=== PATIENT | female | born 2000 | race African-American/Black ===

== ENCOUNTER 2021-11-05 15:41 | Emergency (ER) | payer MEDICAID ==
[~2021-11-05] VITALS: Ht 162.6 cm; Wt 51.0 kg
[2021-11-05] MEDS ORDERED: ACETAMINOPHEN 325MG TABLET PO ONE (16:15)
[2021-11-05] MEDS ORDERED: LIDOCAINE 5% PATCH TOP SCH (16:15)
[2021-11-05] MEDS ORDERED: TETANUS, DIPHTHERIA, PERTUSSIS VAC/PF 0.5ML (>10YR OLD) IM ONE (17:15)
[2021-11-05] MEDS ORDERED: AMOX-424 MT (17:44)
[2021-11-05] MEDS ORDERED: HYDR-4001 MT (17:44)
[2021-11-05] MEDS ORDERED: AMOXICILLIN/POTASSIUM CLAVULANATE 875/125MG TAB PO ONE (17:45)
[2021-11-05 18:28] VITALS: BP 118/67
== END 2021-11-05 18:22 | disposition home or self-care (01) ==
LOC: ER 15:41
DX: S02.40FA Zygomatic fracture, left side, initial encounter for closed fracture (principal); S01.81XA Laceration without foreign body of other part of head, initial encounter; S20.211A Contusion of right front wall of thorax, initial encounter; F12.10 Cannabis abuse, uncomplicated; Y04.0XXA Assault by unarmed brawl or fight, initial encounter; Y07.03 Male partner, perpetrator of maltreatment and neglect; Y93.89 Activity, other specified; Y92.018 Other place in single-family (private) house as the place of occurrence of the external cause
CPT/HCPCS: 12011; 70486; 71101; 90471; 90715; 99284

== ENCOUNTER 2023-08-23 13:25 | Emergency (ER) | payer MEDICAID, OTHER ==
[~2023-08-23] VITALS: Ht 165.1 cm; Wt 54.0 kg
[~2023-08-23 13:25] MED LIST: AMOX-424 MT; HYDR-4001 MT
[2023-08-23 13:27] VITALS: TEMP 98.4; O2SAT 98
[2023-08-23 13:45] VITALS: BP 118/72; PULSE 113; RESP 18
[2023-08-23] MEDS ORDERED: IBUPROFEN 600MG TABLET PO ONE (13:45)
[2023-08-23] MEDS ORDERED: AMOXICILLIN/POTASSIUM CLAVULANATE 875/125MG TAB PO ONE (13:45)
[2023-08-23] MEDS ORDERED: TETANUS, DIPHTHERIA, PERTUSSIS VAC/PF 0.5ML (>10YR OLD) IM ONE (13:45)
[2023-08-23] MEDS ORDERED: AMOX1TAB16 MT (15:56)
== END 2023-08-23 18:51 | disposition home or self-care (01) ==
LOC: ER 13:25
DX: S63.502A Unspecified sprain of left wrist, initial encounter (principal); Y04.0XXA Assault by unarmed brawl or fight, initial encounter; Y93.89 Activity, other specified; Y92.89 Other specified places as the place of occurrence of the external cause; Y99.8 Other external cause status
CPT/HCPCS: 81025; 73110; 90715; 90471; 99283; Z7610

== ENCOUNTER 2025-02-23 23:17 | Emergency (ER) | payer OTHER ==
[~2025-02-23] VITALS: Ht 165.1 cm; Wt 79.0 kg
[~2025-02-23 23:17] MED LIST changes: +AMOX1TAB16 MT
[2025-02-23 23:35] VITALS: O2SAT 99
[2025-02-24] MEDS: TETANUS, DIPHTHERIA, PERTUSSIS VAC/PF 0.5ML (>10YR OLD) IM ONE (00:56)
[2025-02-24] MEDS: BACITRACIN ZINC OINT UDPKT TOP ONE (00:56)
[2025-02-24] MEDS ORDERED: TOPUD MT (01:21)
[2025-02-24] MEDS ORDERED: AMOX1TAB16 MT (01:21)
[2025-02-24 01:40] VITALS: BP 112/65; PULSE 89; RESP 18; TEMP 37; O2SAT 99
== END 2025-02-24 01:45 | disposition home or self-care (01) ==
LOC: ER 23:17
DX: S71.132A Puncture wound without foreign body, left thigh, initial encounter (principal); F12.90 Cannabis use, unspecified, uncomplicated; Z79.899 Other long term (current) drug therapy; W54.0XXA Bitten by dog, initial encounter; Y93.89 Activity, other specified; Y92.89 Other specified places as the place of occurrence of the external cause; Y99.8 Other external cause status
CPT/HCPCS: 73551; 90471; 90715; 99283